=== PATIENT | female | born 1945 | race Caucasian/White ===

== ENCOUNTER 2016-08-13 17:54 | Inpatient (IN) | payer OTHER, MEDICARE ==
[~2016-08-13 17:54] MED LIST: LEVEMIR SQ; LEVO112T2 PO; OMEP40CA2 PO; PARO40TA2 PO
[2016-08-13 21:30] VITALS: BP 115/62; PULSE 70; RESP 20; TEMP 98.6; O2SAT 96
[2016-08-13 22:00] VITALS: PULSE 75
[2016-08-13] MEDS ORDERED: SODIUM CHLORIDE 0.9% FLUSH 10 ML FLUSH IV FLUSH PRN (22:15)
[2016-08-13] MEDS ORDERED: NALOXONE HCL 0.4 MG/ML AMP IV PRN (22:15)
[2016-08-13] MEDS ORDERED: ACETAMINOPHEN 325 MG TAB PO PRN (22:15)
[2016-08-13] MEDS ORDERED: ONDANSETRON HCL 4 MG/2 ML VIAL IVP PRN (22:15)
[2016-08-13] MEDS ORDERED: SENNOSIDES 8.6 MG TAB PO PRN (22:15)
[2016-08-13] MEDS ORDERED: HEPARIN-D5W INJ 250 ML IV SCH (22:15)
[2016-08-13] MEDS ORDERED: GLUCAGON 1 MG/ML VIAL OTHER PRN (22:30)
[2016-08-13] MEDS ORDERED: DEXTROSE 50% IN WATER 50 ML VIAL(D50) IV PUSH PRN (22:30)
[2016-08-14] VITALS: BP 112/61; PULSE 68; RESP 18; TEMP 97.3; O2SAT 96
[2016-08-14] MEDS ORDERED: ACETAMINOPHEN/CODEINE 300 MG/30 MG TAB PO ONE (00:30)
[2016-08-14 01:04] LABS: APTT (PATIENT) 60.2 SEC (24.3-30.1)
[2016-08-14 04:00] VITALS: BP 114/71; PULSE 72; RESP 20; TEMP 97; O2SAT 91
[2016-08-14] MEDS: LEVOTHYROXINE SODIUM 112 MCG TAB PO SCH (06:11)
[2016-08-14 06:57] LABS: AUTOMATED NEUTROPHIL # 5.4 TH/MM3 (1.8-7.7); BASOPHIL % 0.2 % (0.0-2.0); EOSINOPHIL % 0.2 % (0.0-4.0); HEMATOCRIT 36.4 % (35.0-46.0); HEMO FLAGS DIFF FINAL; LYMPH % 25.3 % (9.0-44.0); LYMPHOCYTE # 1.9 TH/MM3 (1.0-4.8); MEAN CELL VOLUME 86.6 FL (80.0-100.0); MEAN CORPUSCULAR HEMOGLOBIN 28.1 PG (27.0-34.0); MEAN CORPUSCULAR HGB CONC 32.5 % (32.0-36.0); MONO % 4.6 % (0.0-8.0); NEUT % 69.7 % (16.0-70.0); PLATELET COUNT 360 TH/MM3 (150-450); RED BLOOD COUNT 4.21 MIL/MM3 (4.00-5.30); RED CELL DISTRIBUTION WIDTH 14.9 % (11.6-17.2); WHITE BLOOD COUNT 7.7 TH/MM3 (4.0-11.0)
[2016-08-14 07:13] LABS: APTT (PATIENT) 53.9 SEC (24.3-30.1)
[2016-08-14 07:15] LABS: POTASSIUM 4.3 MEQ/L (3.5-5.1)
[2016-08-14 07:21] LABS: BICARBONATE 30.2 MEQ/L (21.0-32.0)
[2016-08-14 08:00] VITALS: BP 134/72; PULSE 83; RESP 18; TEMP 97.4; O2SAT 93
[2016-08-14] MEDS: PARoxetine HCL 20 MG TAB PO SCH (08:40)
[2016-08-14] MEDS: SODIUM CHLORIDE 0.9% FLUSH 10 ML FLUSH IV FLUSH SCH ×2 (08:40→21:00)
[2016-08-14] MEDS: PANTOPRAZOLE SOD 40 MG DELAYED RELEASE TAB PO SCH (08:40)
[2016-08-14] MEDS: INSULIN ASPART SUPPLEMENTAL SCALE SQ SCH ×4 (08:41→21:00)
--- NOTE | 2016-08-14 11:37 | HHI.HP ---
[facility]Staff Admission Diagnosis Diagnoses: (1) Pulmonary embolism Chief Complaint: Right sided lower rib pain Travel History International Travel<30 Days: No Contact w/Intl Traveler <30 Da: No Traveled to Known Affected Are: No History of Present Illness 71-year-old female with a medical history significant for diabetes, hypothyroidism, osteoporosis and GERD who presented to the emergency room with complaint of right sided lower rib pain. Patient reports she had similar pain last year for about a month which resolved spontaneously. Yesterday she started to experience severe pain again which prompted the emergency room visit. She denies shortness of breath or chest pressure. No nausea or vomiting. Initial workup in the emergency room suggests pulmonary embolism involving the right lung. Patient was admitted for further treatment. She denies any history of blood clots. No lower extremity pain or swelling. Review of Systems Constitutional: COMPLAINS OF: Night Sweats, DENIES: Fever, Weight loss, Chills Eyes: DENIES: Blurred vision Respiratory: DENIES: Cough, Shortness of breath Cardiovascular: DENIES: Chest pain, Dyspnea on Exertion Gastrointestinal: DENIES: Black stools, Bloody stools Except as stated in HPI: all other systems reviewed are Neg Past Family Social History Past Medical History Diabetes Osteoporosis Hypothyroidism GERD Past Surgical History Cholecystectomy Left shoulder surgery Right elbow surgery Left wrist surgery Tubal ligation Reported Medications Reported Meds & Active Scripts Active Reported Levemir Inj (Insulin Detemir) 1,000 unit/ 10 ML Vial 24 Units SQ AC LUNCH Do not mix with any other Insulin. Omeprazole 40 Mg Cap 40 Mg PO DAILY Paroxetine (Paroxetine HCl) 40 Mg Tab 40 Mg PO DAILY Levothyroxine (Levothyroxine Sodium) 112 Mcg Tab 112 Mcg PO DAILY Allergies: Coded Allergies: No Known Allergies (Unverified , 08/13/16) Family History Father of cancer "close to the liver" Mother from complications of diabetes Social History Patient is a lifelong smoker one pack per day for the past 50+ years. She denies alcohol or illicit drugs. Physical Exam Vital Signs Vital Signs Date Time Temp Pulse Resp B/P Pulse Ox O2 Delivery O2 Flow Rate FiO2 5/16/17 08:00 97.4 83 18 134/72 93 08/14/16 04:00 97.0 72 20 114/71 91 08/14/16 01:47 18 08/14/16 00:00 97.3 68 18 112/61 96 08/13/16 22:00 75 08/13/16 21:30 98.6 70 20 115/62 96 Physical Exam GENERAL: This is a well-nourished, well-developed patient, in no apparent distress. SKIN: No rashes, ecchymoses or lesions. Cool and dry. HEAD: Atraumatic. Normocephalic. No temporal or scalp tenderness. EYES: Pupils equal round and reactive. Extraocular motions intact. No scleral icterus. No injection or drainage. ENT: Nose without bleeding, purulent drainage or septal hematoma. Throat without erythema, tonsillar hypertrophy or exudate. Uvula midline. Airway patent. NECK: Trachea midline. No JVD or lymphadenopathy. Supple, nontender, no meningeal signs. CARDIOVASCULAR: Regular rate and rhythm without murmurs, gallops, or rubs. RESPIRATORY: Clear to auscultation. Breath sounds equal bilaterally. No wheezes , rales, or rhonchi. GASTROINTESTINAL: Some discomfort over the right upper quadrant, closer to the ribs. Otherwise abdomen is soft, nontender, nondistended. MUSCULOSKELETAL: Extremities without clubbing, cyanosis, or edema. No joint tenderness, effusion, or edema noted. No calf tenderness. Negative Homans sign bilaterally. NEUROLOGICAL: Awake and alert. Cranial nerves II through XII intact. Motor and sensory grossly within normal limits. Five out of 5 muscle strength in all muscle groups. Normal speech. Laboratory Laboratory Tests Test 08/14/16 08/14/16 00:34 06:33 Activated Partial 60.2 53.9 Thromboplast Time White Blood Count 7.7 Red Blood Count 4.21 Hemoglobin 11.8 Hematocrit 36.4 Mean Corpuscular Volume 86.6 Mean Corpuscular Hemoglobin 28.1 Mean Corpuscular Hemoglobin 32.5 Concent Red Cell Distribution Width 14.9 Platelet Count 360 Mean Platelet Volume 8.1 Neutrophils (%) (Auto) 69.7 Lymphocytes (%) (Auto) 25.3 Monocytes (%) (Auto) 4.6 Eosinophils (%) (Auto) 0.2 Basophils (%) (Auto) 0.2 Neutrophils # (Auto) 5.4 Lymphocytes # (Auto) 1.9 Monocytes # (Auto) 0.4 Eosinophils # (Auto) 0.0 Basophils # (Auto) 0.0 CBC Comment DIFF FINAL Differential Comment Sodium Level 137 Potassium Level 4.3 Chloride Level 100 Carbon Dioxide Level 30.2 Anion Gap 7 Blood Urea Nitrogen 17 Creatinine 0.71 Estimat Glomerular Filtration 81 Rate Random Glucose 209 Calcium Level 9.7 Result Diagram: 08/14/1663208/14/16632 Assessment and Plan Problem List: (1) Pulmonary embolism ICD Code: I26.99 Status: Acute Plan: Chest CT images reviewed. Right upper lung filling defect suggestive of a focal pulmonary embolism. - Patient was started on heparin drip. She is hemodynamically stable. Will transition to Xarelto and plan to discharge home on Xarelto. Supplemental oxygen as needed. (2) Lung nodule seen on imaging study ICD Code: R91.1 Status: Acute Plan: Patient reports she has known long nodules. It has been present since the s. Outpatient follow-up CAT scan in about 6 months is recommended. Discussed with patient, and daughter. (3) Lymphadenopathy ICD Code: R59.1 Status: Acute Plan: 1.8 cm lymph node located between the left lobe of the liver and the neck of the pancreas. Agree with radiologist's recommendations, Advised nonemergent outpatient PET/CT (4) Diabetes ICD Code: E11.9 Status: Acute Plan: Resume Levemir Sliding scale insulin with Accu-Cheks. (5) Hypothyroidism ICD Code: E03.9 Status: Acute Plan: Continue Synthroid. Check TSH Discussed Condition With Dr. Tee. Physician Certification 2 Midnight Certification Type: Admission for Inpatient Services Order for Inpatient Services The services are ordered in accordance with Medicare regulations or non- Medicare payer requirements, as applicable. In the case of services not specified as inpatient-only, they are appropriately provided as inpatient services in accordance with the 2-midnight benchmark. Estimated LOS (days): 3 days is the estimated time the patient will need to remain in the hospital, assuming treatment plan goals are met and no additional complications. Post-Hospital Plan: Home Christie Pretty MD August 14, 2016 11:37
[2016-08-14] MEDS: RIVAROXABAN 15 MG TAB PO SCH ×2 (12:01→23:38)
[2016-08-14] MEDS: ACETAMINOPHEN/HYDROcodone 325 MG/5 MG TAB PO PRN (12:02)
[2016-08-14] MEDS: INSULIN DETEMIR 100 UNITS/ML VIAL SQ SCH (12:05)
[2016-08-14] MEDS: NICOTINE 14 MG/24 HR PATCH T-DERMAL SCH (14:06)
[2016-08-14 16:00] VITALS: BP 109/75; PULSE 75; RESP 20; TEMP 98.5; O2SAT 97
--- NOTE | 2016-08-14 17:14 | RADHPO ---
EXAM DATE/TIME: 08/14/2016 16:16 [place] COMPARISON: No previous studies available for comparison. INDICATIONS : Leg pain. Pulmonary embolism. MEDICAL HISTORY : Diabetes. Hypothyroid. GERD. SURGICAL HISTORY : Cholecystectomy. Left shoulder surgery. ENCOUNTER: Initial ACUITY: 2 weeks PAIN SCORE: 4/10 LOCATION: Bilateral leg. TECHNIQUE: Venous ultrasound of the left and right leg was performed from the inguinal ligament to the proximal calf. Real-time, color Doppler and spectral tracing, compression and augmentation techniques were us ed. FINDINGS: RIGHT LEG: There is normal compressibility of the deep venous system from the inguinal region to the proximal ca lf. No echogenic clot is seen in the lumen of the common femoral, femoral, popliteal, and posterior tibial veins. There is a normal response of the venous system to proximal and distal augmentation an d respiration. LEFT LEG: There is normal compressibility of the deep venous system from the inguinal region to the proximal ca lf. No echogenic clot is seen in the lumen of the common femoral, femoral, popliteal, and posterior tibial veins. There is a normal response of the venous system to proximal and distal augmentation an d respiration. CONCLUSION: 1. No evidence of deep venous thrombosis. Amor Call MD on August 14, 2016 at 17:11 Board Certified Radiologist. This report was verified electronically.
[2016-08-14 20:00] VITALS: BP 121/70; PULSE 73; RESP 18; TEMP 98.4; O2SAT 96
[2016-08-15] VITALS: BP 119/68; PULSE 75; RESP 18; TEMP 98.8; O2SAT 96
[2016-08-15 04:00] VITALS: BP 124/65; PULSE 76; RESP 18; TEMP 98.2; O2SAT 97
[2016-08-15] MEDS: LEVOTHYROXINE SODIUM 112 MCG TAB PO SCH (06:15)
[2016-08-15] MEDS: INSULIN ASPART SUPPLEMENTAL SCALE SQ SCH ×2 (06:16→11:00)
[2016-08-15] MEDS: ACETAMINOPHEN/HYDROcodone 325 MG/5 MG TAB PO PRN ×2 (06:20→07:20)
[2016-08-15] MEDS ORDERED: REMOVE OLD PATCH T-DERMAL SCH (09:00)
[2016-08-15] MEDS: SODIUM CHLORIDE 0.9% FLUSH 10 ML FLUSH IV FLUSH SCH (09:00)
[2016-08-15 09:14] VITALS: BP 125/71; PULSE 61; RESP 18; TEMP 96.8; O2SAT 97
[2016-08-15] MEDS: PANTOPRAZOLE SOD 40 MG DELAYED RELEASE TAB PO SCH (09:21)
[2016-08-15] MEDS: PARoxetine HCL 20 MG TAB PO SCH (09:22)
[2016-08-15] MEDS: NICOTINE 14 MG/24 HR PATCH T-DERMAL SCH (09:25)
[2016-08-15 10:56] VITALS: RESP 14
[2016-08-15] MEDS ORDERED: HYDR-3516 PO (10:56)
[2016-08-15] MEDS ORDERED: XARE15TA PO (10:56)
--- NOTE | 2016-08-15 10:57 | HHI.DCPOC ---
Discharge Care Plan Diagnosis: (1) Lung nodule seen on imaging study (2) Pulmonary embolism (3) Lymphadenopathy (4) Hypothyroidism (5) Diabetes Goals to Promote Your Health * To prevent worsening of your condition and complications * To maintain your health at the optimal level Directions to Meet Your Goals Take your medications as prescribed Follow your dietary instruction Follow activity as directed Keep your appointments as scheduled Take your immunizations and boosters as scheduled If your symptoms worsen call your PCP, if no PCP go to Urgent Care Center or Emergency Room Smoking is Dangerous to Your Health. Avoid second hand smoke Call the 24-hour hour crisis hotline for domestic abuse at Christie Pretty MD August 15, 2016 10:57
[2016-08-15] MEDS ORDERED: NICO14DI T-DERMAL (10:58)
--- NOTE | 2016-08-15 10:58 | HHI.PR ---
Subjective Remarks Patient reports she is feeling much better. Right lower rib pain significantly improved. No chest pain or shortness of breath. She is anxious to go home. We discussed discharge planning at length and the need to follow-up outpatient with her primary care physician. She understand the need to be anticoagulated. I have answered all of her questions. Objective Vitals Vital Signs Date Time Temp Pulse Resp B/P Pulse Ox O2 Delivery O2 Flow Rate FiO2 08/15/16 10:56 14 08/15/16 09:14 96.8 61 18 125/71 97 08/15/16 04:00 98.2 76 18 124/65 97 08/15/16 00:00 98.8 75 18 119/68 96 08/14/16 20:00 73 08/14/16 20:00 98.4 73 18 121/70 96 08/14/16 16:00 98.5 75 20 109/75 97 I/O 08/14/16 08/14/16 08/14/16 08/15/16 08/15/16 08/15/16 07:00 15:00 23:00 07:00 15:00 23:00 Intake Total 120 ml 710 ml 365 ml 240 ml Balance 120 ml 710 ml 365 ml 240 ml Intake Oral 120 ml 630 ml 365 ml 240 ml IV Total 80 ml 0 ml # Voids 2 4 2 2 # Bowel Movements 0 Result Diagram: 08/14/16 0633 08/14/16 0633 Imaging Last Impressions Lower Extremity Ultrasound 08/14/16 0000 Signed Impressions: Service Date/Time: Sunday, August 14, 2016 16:16 - CONCLUSION: 1. No evidence of deep venous thrombosis. Amor Call MD Objective Remarks GENERAL: This is a well-nourished, well-developed patient, in no apparent distress. CARDIOVASCULAR: Normal rate and regular rhythm without murmurs, gallops, or rubs. RESPIRATORY: Good respiratory efforts. Breath sounds equal and clear to auscultation bilaterally. GASTROINTESTINAL: Abdomen soft, non-tender, non-distended. Normal active bowel sounds MUSCULOSKELETAL: Extremities without cyanosis, or edema. NEURO: Alert & Oriented x4 to person, place, time, situation. Moves all ext x4 PSYCH: Appropriate mood and affect. A/P Problem List: (1) Pulmonary embolism ICD Code: I26.99 Status: Acute Plan: Chest CT images reviewed. Right upper lung filling defect suggestive of a focal pulmonary embolism. - Patient was started on heparin drip. She is hemodynamically stable. She was transitioned to Xarelto. She tolerated the medications well. She is discharged on Xarelto for at least 3 months. She is to follow-up with her primary care physician after discharge. (2) Lung nodule seen on imaging study ICD Code: R91.1 Status: Acute Plan: Patient reports she has known lung nodules. It has been present since the s. Outpatient follow-up CAT scan in about 6 months is recommended. Discussed with patient, and daughter. (3) Lymphadenopathy ICD Code: R59.1 Status: Acute Plan: 1.8 cm lymph node located between the left lobe of the liver and the neck of the pancreas. Agree with radiologist's recommendations, Advised nonemergent outpatient PET/CT (4) Diabetes ICD Code: E11.9 Status: Acute Plan: Resume home dose insulin regimen. (5) Hypothyroidism ICD Code: E03.9 Status: Acute Plan: Continue Synthroid. TSH within normal range Discharge Planning Discharge home in good condition Activity: Regular as tolerated Diet: Diabetic Follow-up with PCP Meds: Per med rec Christie Pretty MD August 15, 2016 10:58
[2016-08-15] MEDS: RIVAROXABAN 15 MG TAB PO SCH (11:22)
[2016-08-15] MEDS: INSULIN DETEMIR 100 UNITS/ML VIAL SQ SCH (13:10)
== END 2016-08-15 15:09 | disposition home or self-care (01) | DRG 176 ==
LOC: NEDDLT 17:54 → PH3A 21:31 → OBSVTOIN 22:14
PROVIDERS: ADMIT Family Medicine; ATTEND Family Medicine
DX: I26.99 Other pulmonary embolism without acute cor pulmonale (principal); E11.9 Type 2 diabetes mellitus without complications; E03.9 Hypothyroidism, unspecified; K21.9 Gastro-esophageal reflux disease without esophagitis; M81.0 Age-related osteoporosis without current pathological fracture; Z79.4 Long term (current) use of insulin; F17.210 Nicotine dependence, cigarettes, uncomplicated; R91.1 Solitary pulmonary nodule; R59.0 Localized enlarged lymph nodes
CPT/HCPCS: 71275; 74177; 80048; 80053; 81001; 82948; 83690; 84443; 85025; 85379; 85610; 85730; 93970; 96365; 96375; 99281; J1644; J1815; Q9967